=== PATIENT | male | born 1955 | race Caucasian/White ===

== ENCOUNTER 2019-08-01 16:57 | Emergency (ER) | payer OTHER ==
[~2019-08-01] VITALS: Ht 200.7 cm; Wt 111.1 kg
[2019-08-01] MEDS ORDERED: NOHOMEMEDICATIONS (17:04)
[2019-08-01 18:30] VITALS: BP 140/70
== END 2019-08-01 18:30 | disposition home or self-care (01) ==
LOC: ER 16:57
DX: R05 Cough (principal)